=== PATIENT | female | born 1960 | race Caucasian/White ===

== ENCOUNTER → 2016-06-27 | Outpatient (CLI) | payer BC ==
[2016-06-27 08:46] LABS: ALT 18 U/L (9-52); AST 21 U/L (14-36); Alkaline Phosphatase 74 U/L (38-126); Anion Gap 13 mmol/L; Blood Urea Nitrogen 16 mg/dL (7-17); CHCM 33.3; Calcium 9.4 mg/dL (8.4-10.2); Carbon Dioxide 24 mmol/L (22-30); Chloride 104 mmol/L (98-107); Cholesterol 200 mg/dL (<200); Glucose 107 mg/dL (74-99); HCT 43.6 % (34.0-46.0); HDL Cholesterol 45 mg/dL (40-60); HGB 14.3 gm/dL (11.4-16.0); MCH 28.7 pg (25.0-35.0); MCHC 32.8 g/dL (31.0-37.0); MCV 87.4 fL (80.0-100.0); Mean Platelet Volume 6.8; Non-African American GFR(MDRD) >60 (>60 ml/min/1.73 sqM); Potassium 4.3 mmol/L (3.5-5.1); RBC 4.98 m/uL (3.80-5.40); RDW 13.5 % (11.5-15.5); Sodium 141 mmol/L (137-145); Total Bilirubin 0.8 mg/dL (0.2-1.3); Total Protein 7.7 g/dL (6.3-8.2); Triglycerides 247 mg/dL (<150); WBC 7.2 k/uL (3.8-10.6)
== END | disposition home or self-care (01) ==
LOC: LABWHC1 08:14
PROVIDERS: ATTEND Internal Medicine
DX: E78.5 Hyperlipidemia, unspecified (principal); I10 Essential (primary) hypertension; R53.83 Other fatigue
CPT/HCPCS: 36415; 80053; 80061; 84443; 85027

== ENCOUNTER → 2019-03-30 | Outpatient (CLI) | payer BC ==
[2019-03-30 08:25] LABS: HCT 41.8 % (34.0-46.0); HGB 13.7 gm/dL (11.4-16.0); MCH 27.5 pg (25.0-35.0); MCHC 32.7 g/dL (31.0-37.0); MCV 84.2 fL (80.0-100.0); Mean Platelet Volume 7.3; Platelet Count 260 k/uL (150-450); RBC 4.97 m/uL (3.80-5.40); RDW 13.4 % (11.5-15.5); WBC 6.4 k/uL (3.8-10.6)
[2019-03-30 12:05] LABS: African American GFR (CKD) 118.1 (60.0-200.0); Albumin 4.3 g/dL (3.80-4.90); Albumin/Globulin Ratio 2.05 (1.60-3.17); Anion Gap 6.1 mmol/L (4.00-12.00); Calcium 9.1 mg/dL (8.7-10.3); Carbon Dioxide 28.9 mmol/L (21.6-31.8); Chol/HDL Ratio 4.76; Globulin 2.1 g/dL (1.6-3.3); Non-African American GFR(CKD) 101.9 (60.0-200.0); Potassium 4.2 mmol/L (3.5-5.5); Total Bilirubin 0.6 mg/dL (0.2-1.2); Total Protein 6.4 g/dL (6.2-8.2)
== END | disposition home or self-care (01) ==
LOC: LABWHC1 07:56
PROVIDERS: ATTEND Internal Medicine
DX: I10 Essential (primary) hypertension (principal); E78.5 Hyperlipidemia, unspecified
CPT/HCPCS: 36415; 80053; 80061; 83721; 85027

== ENCOUNTER → 2023-02-12 | Outpatient (CLI) | payer BC ==
--- NOTE | 2023-02-12 16:14 | MM ---
Reason for Exam: Screening (asymptomatic). Last mammogram was performed 11 year(s) and 0 month(s) ago. Patient History: Menarche at age 13. First Full-Term at age 28. Right ovary removed at age 39. Hysterectomy at age 39. Postmenopausal. Maternal aunt had breast cancer, age 60. Maternal aunt had breast cancer, age 55. Risk Values: Jane 5 year model risk: 1.8%. NCI Lifetime model risk: 8.9%. Prior Study Comparison: 01/13/2009 Bilateral Screening Mammogram, [facility]. 01/20/2010 Bilateral Screening Mammogram, [facility]. 02/07/2011 Bilateral Screening Mammogram, [facility]. 02/15/2012 Bilateral Screening Mammogram, [facility]. 02/20/2012 Left Diagnostic Mammogram, [facility]. Tissue Density: The breast tissue is heterogeneously dense. This may lower the sensitivity of mammography. Findings: Analyzed By CAD. Pattern appears symmetrical. There are benign-appearing linear arranged calcifications lower outer right middle breast. Additional benign-appearing calcifications are present bilaterally. No suspicious groups of microcalcifications, spiculated or lobular masses, architectural distortion or other secondary signs of malignancy are mammographically apparent. Overall Assessment: Benign, BI-RAD 2 Management: Screening Mammogram of both breasts in 1 year. A negative mammogram report should not preclude additional follow up of suspicious palpable abnormalities. Patient should continue monthly self breast exam. A clinical breast exam by your physician is recommended on an annual basis and results should be correlated with mammographic findings. Electronically signed and approved by: Nolan Cordoba D.O. Radiologis
--- NOTE | 2023-02-12 16:32 | BD ---
EXAMINATION TYPE: Axial Bone Density DATE OF EXAM: 02/12/2023 CLINICAL HISTORY: 62 years old Female. ICD-10 CODE: Z78.0 Z13.820 ENCOUNTER FOR SCREENING IN [facility] Height: 61.5 in Weight: 139 lbs FRAX RISK QUESTIONS: Secondary Osteoporosis: 3. Menopause before 45: partial hysterectomy age 39 RISK FACTORS HISTORY OF: Active: yes Diet low in dairy products/other sources of calcium: yes Postmenopausal woman: partial hysterectomy age 39 MEDICATIONS: Additional Medications: vit d EXAM MEASUREMENTS: Bone mineral densitometry was performed using the Arden Reed System. Bone mineral density as measured about the Lumbar spine is: ----- L1-L4(G/cm2): 1.285 T Score Values are as follows: ----- L1: 0.2 ----- L2: 0.5 ----- L3: 1.2 ----- L4: 1.4 ----- L1-L4: 0.9 Z Score Values are as follows: ----- L1: 1.5 ----- L2: 1.8 ----- L3: 2.5 ----- L4: 2.7 ----- L1-L4: 2.2 Bone mineral density baseline Bone mineral density about the R hip (g/cm2): 0.806 Bone mineral density about the L hip (g/cm2): 0.869 T Score values are as follows: -----R Neck: -1.6 -----L Neck: -1.9 -----R Total: -1.6 -----L Total: -1.1 Z Score values are as follows: -----R Neck: -0.5 -----L Neck: -0.6 -----R Total: -0.6 -----L Total: -0.1 Bone mineral density baseline FRAX%s: The graph provided illustrates a 9.5% chance for a major osteoporotic fx and a 1.2% chance fo r the hips probability for fx in 10 years time. IMPRESSION: Osteopenia (T Score between -2.5 and -1). There is slightly increased risk of fracture and the patient may be considered for treatment. Re-Screen 2-5 years. NOTE: T-SCORE=SD OF THE YOUNG ADULT MEAN.
== END | disposition home or self-care (01) ==
LOC: RADMAMWWP 07:34
PROVIDERS: ATTEND Internal Medicine
DX: Z12.31 Encounter for screening mammogram for malignant neoplasm of breast (principal); Z13.820 Encounter for screening for osteoporosis; M85.89 Other specified disorders of bone density and structure, multiple sites; Z80.3 Family history of malignant neoplasm of breast; Z78.0 Asymptomatic menopausal state
CPT/HCPCS: 77063; 77067; 77080

== ENCOUNTER 2024-02-22 14:41 | Emergency (ER) | payer BC ==
--- NOTE | 2024-02-22 16:13 | ED ---
Skin/Abscess/FB HPI - General Chief complaint: Skin/Abscess/Foreign Body Stated complaint: Facial swelling/sore Time Seen by Provider: 02/22/24 14:57 Source: patient, RN notes reviewed Mode of arrival: ambulatory Limitations: no limitations - History of Present Illness Initial comments: Patient is a 63-year-old female presenting with abscess/growth under right jaw x 3 days. Patient states she is unsure of cause, with it starting as a small bump 2 weeks ago, stating she has already received antibiotics (Augmentin and doxycycline) for the suspected infection with minimal relief. Endorses small amount of purulent discharge. States she was referred to ER for possible I&D. Endorses associated sore throat and fatigue. Denies known fever, chills, ear pain. MD complaint: abscess/boil Onset/Timin -: days(s) Location: neck Consistency: constant Improves with: none Worsens with: none Context: none Treatments Prior to Arrival: antibiotic - Related Data Previous Rx's Medication Instructions Recorded Mupirocin 2% Oint [Bactroban 2% 1 applic TOPICAL TID #22 gm 02/22/24 Oint] clindamycin HCL 300 mg PO QID #40 cap 02/22/24 Allergies Allergy/AdvReac Type Severity Reaction Status Date / Time latex Allergy Unknown Verified 02/22/24 15:19 Review of Systems ROS Statement: Those systems with pertinent positive or pertinent negative responses have been documented in the HPI. ROS Other: All systems not noted in ROS Statement are negative. Past Medical History Past Surgical History: Adenoidectomy, Ear Surgery, Hysterectomy, Tonsillectomy Smoking Status: Never smoker Past Alcohol Use History: Occasional Past Drug Use History: None Reported General Exam Limitations: no limitations General appearance: alert, in no apparent distress Head exam: Present: atraumatic, normocephalic, other (Positive bilateral mild parotitis with tenderness) Eye exam: Present: normal appearance, PERRL, EOMI. Absent: scleral icterus, conjunctival injection, periorbital swelling ENT exam: Present: normal exam, mucous membranes moist Neck exam: Present: normal inspection, lymphadenopathy (Diffuse submandibular lymphadenopathy), other (Golf ball sized, erythematous abscess/cyst/lymph node in right submandibular/submental region with associated tenderness and small amount of purulent discharge with attempted expression). Absent: tenderness, meningismus Respiratory exam: Present: normal lung sounds bilaterally. Absent: respiratory distress, wheezes, rales, rhonchi, stridor Cardiovascular Exam: Present: regular rate, normal rhythm, normal heart sounds. Absent: systolic murmur, diastolic murmur, rubs, gallop, clicks GI/Abdominal exam: Present: soft, normal bowel sounds. Absent: distended, tenderness, guarding, rebound, rigid Extremities exam: Present: normal inspection, full ROM, normal capillary refill. Absent: tenderness, pedal edema, joint swelling, calf tenderness Back exam: Present: normal inspection Neurological exam: Present: alert, oriented X3, CN II-XII intact Psychiatric exam: Present: normal affect, normal mood Skin exam: Present: warm, dry, intact, normal color. Absent: rash Course Vital Signs 02/22/24 02/22/24 15:19 18:56 Temperature 98 F 98.2 F Pulse Rate 91 63 Respiratory 20 18 Rate Blood Pressure 124/66 109/73 O2 Sat by Pulse 97 100 Oximetry Procedures - Incision & Drainage Consent Obtained: verbal consent Indication: Abscess Site: neck Size (cm): 2 (2 cm horizontal incision) Anesthetic Used: lidocaine 1% Amount (mLs): 4 I&D Cleaning Method: Betadine Sterile Field Used?: No Scalpel Used: #11 Ultrasound used: Yes Needle Aspiration Performed?: No Irrigation Performed?: Yes I&D Drainage Obtained: Pus, Blood Loculation Noted: probing needed to break Insertion of drain: No Culture Obtained?: Yes Patient Tolerated Procedure: well Medical Decision Making - Medical Decision Making Was pt. sent in by a medical professional or institution (, PA, CRANE ASSEMBLER, urgent care, hospital, or snf...) When possible be specific @ -[No] Did you speak to anyone other than the patient for history (EMS, parent, family, police, friend...)? What history was obtained from this source @ -[No] Did you review nursing and triage notes (agree or disagree)? Why? @ -[I reviewed and agree with nursing and triage notes] Were old charts reviewed (outside hosp., previous admission, EMS record, old EKG, old radiological studies, urgent care reports/EKG's, snf records)? Report findings @ -[No old charts were reviewed] Differential Diagnosis (chest pain, altered mental status, abdominal pain women, abdominal pain men, vaginal bleeding, weakness, fever, dyspnea, syncope, hea dache, dizziness, GI bleed, back pain, seizure, CVA, palpatations, mental health, musculoskeletal)? @ -Abscess, lymphadenitis, strep pharyngitis, parotitis, Aureliano's angina, cellulitis, sinusitis, AOM, this is not an exhaustive list EKG interpreted by me (3pts min.). @ -Not done X-rays interpreted by me (1pt min.). @ -[None done] CT interpreted by me (1pt min.). @ -[None done] U/S interpreted by me (1pt. min.). @ -[None done] What testing was considered but not performed or refused? (CT, X-rays, U/S, labs)? Why? @ -[None] What meds were considered but not given or refused? Why? @ -[None] Did you discuss the management of the patient with other professionals (professionals i.e. , PA, CRANE ASSEMBLER, lab, RT, psych nurse, social work associate, certified professional controller, teacher, community service officer coordinator, director case)? Give summary @ -[No] Was smoking cessation discussed for >3mins.? @ -[No] Was critical care preformed (if so, how long)? @ -[No] Were there social determinants of health that impacted care today? How? (Homelessness, low income, unemployed, alcoholism, drug addiction, transportation, low edu. Level, literacy, decrease access to med. care, alf, rehab)? @ -[No] Was there de-escalation of care discussed even if they declined (Discuss DNR or withdrawal of care, Hospice)? DNR status @ -[No] What co-morbidities impacted this encounter? (DM, HTN, Smoking, COPD, CAD, Cancer, CVA, ARF, Chemo, Hep., AIDS, mental health diagnosis, sleep apnea, morbid obesity)? @ -[None] Was patient admitted / discharged? Hospital course, mention meds given and route, prescriptions, significant lab abnormalities, going to OR and other pertinent info. @ -[hospital course] Undiagnosed new problem with uncertain prognosis? @ -[No] Drug Therapy requiring intensive monitoring for toxicity (Heparin, Nitro, Insulin, Cardizem)? @ -[No] Were any procedures done? @ -I&D of abscess performed Diagnosis/symptom? @ -Parotitis, submandibular abscess Acute, or Chronic, or Acute on Chronic? @ -Acute Uncomplicated (without systemic symptoms) or Complicated (systemic symptoms)? @ -Complicated Side effects of treatment? @ -[No] Exacerbation, Progression, or Severe Exacerbation? @ -[No] Poses a threat to life or bodily function? How? (Chest pain, USA, NV, pneumonia, PE, COPD, DKA, ARF, appy, cholecystitis, CVA, Diverticulitis, Homicidal, Suicidal, threat to staff... and all critical care pts) @ -[No] - Lab Data Result diagrams: 02/22/24 16:19 02/22/24 16:19 Lab Results 02/22/24 02/22/24 02/22/24 Range/Units 16:19 16:19 16:32 WBC 12.0 H (3.8-10.6) k/uL RBC 5.16 (3.80-5.40) m/uL Hgb 14.2 (11.4-16.0) gm/dL Hct 43.5 (34.0-46.0) % MCV 84.3 (80.0-100.0) fL MCH 27.4 (25.0-35.0) pg MCHC 32.5 (31.0-37.0) g/dL RDW 12.8 (11.5-15.5) % Plt Count 323 (150-450) k/uL MPV 7.8 Neutrophils % 76 % Lymphocytes % 16 % Monocytes % 4 % Eosinophils % 2 % Basophils % 0 % Neutrophils # 9.1 H (1.3-7.7) k/uL Lymphocytes # 2.0 (1.0-4.8) k/uL Monocytes # 0.5 (0-1.0) k/uL Eosinophils # 0.2 (0-0.7) k/uL Basophils # 0.0 (0-0.2) k/uL Sodium 138 (137-145) mmol/L Potassium 4.2 (3.5-5.1) mmol/L Chloride 100 (98-107) mmol/L Carbon Dioxide 23 (22-30) mmol/L Anion Gap 15 mmol/L BUN 25 H (7-17) mg/dL Creatinine 0.75 (0.52-1.04) mg/dL Est GFR (CKD-EPI)AfAm >90 (>60 ml/min/1.73 sqM) Est GFR (CKD-EPI)NonAf 86 (>60 ml/min/1.73 sqM) Glucose 169 H (74-99) mg/dL Calcium 10.3 H (8.4-10.2) mg/dL Total Bilirubin 0.2 (0.2-1.3) mg/dL AST 22 (14-36) U/L ALT 17 (4-34) U/L Alkaline Phosphatase 73 (38-126) U/L Total Protein 7.6 (6.3-8.2) g/dL Albumin 4.7 (3.5-5.0) g/dL Influenza Type A (PCR) (Not Detectd) Influenza Type B (PCR) (Not Detectd) RSV (PCR) (Not Detectd) SARS-CoV-2 (PCR) (Not Detectd) Group A Strep (PCR) NOT DETECTED (Not Detectd) 02/22/24 Range/Units 16:32 WBC (3.8-10.6) k/uL RBC (3.80-5.40) m/uL Hgb (11.4-16.0) gm/dL Hct (34.0-46.0) % MCV (80.0-100.0) fL MCH (25.0-35.0) pg MCHC (31.0-37.0) g/dL RDW (11.5-15.5) % Plt Count (150-450) k/uL MPV Neutrophils % % Lymphocytes % % Monocytes % % Eosinophils % % Basophils % % Neutrophils # (1.3-7.7) k/uL Lymphocytes # (1.0-4.8) k/uL Monocytes # (0-1.0) k/uL Eosinophils # (0-0.7) k/uL Basophils # (0-0.2) k/uL Sodium (137-145) mmol/L Potassium (3.5-5.1) mmol/L Chloride (98-107) mmol/L Carbon Dioxide (22-30) mmol/L Anion Gap mmol/L BUN (7-17) mg/dL Creatinine (0.52-1.04) mg/dL Est GFR (CKD-EPI)AfAm (>60 ml/min/1.73 sqM) Est GFR (CKD-EPI)NonAf (>60 ml/min/1.73 sqM) Glucose (74-99) mg/dL Calcium (8.4-10.2) mg/dL Total Bilirubin (0.2-1.3) mg/dL AST (14-36) U/L ALT (4-34) U/L Alkaline Phosphatase (38-126) U/L Total Protein (6.3-8.2) g/dL Albumin (3.5-5.0) g/dL Influenza Type A (PCR) Not Detected (Not Detectd) Influenza Type B (PCR) Not Detected (Not Detectd) RSV (PCR) Not Detected (Not Detectd) SARS-CoV-2 (PCR) Not Detected (Not Detectd) Group A Strep (PCR) (Not Detectd) Disposition Clinical Impression: Acute parotitis, Abscess, Lymphadenitis, acute Disposition: HOME SELF-CARE Condition: Good Instructions (If sedation given, give patient instructions): Abscess Incision and Drainage (ED) Additional Instructions: Increase hydration and use of sialagogues like lemon drops. Hold on doxycycline use and start clindamycin. Continue Augmentin use Prescriptions: Mupirocin 2% Oint [Bactroban 2% Oint] 1 applic TOPICAL TID #22 gm clindamycin HCL 300 mg PO QID #40 cap Is patient prescribed a controlled substance at d/c from ED?: No Referrals: Rc Amaya DO [Primary Care Provider] - 1-2 days Time of Disposition: 18:26
[2024-02-22 16:26] LABS: Basophils % (A) 0 %; Eosinophils # (A) 0.2 k/uL (0-0.7); Eosinophils % (A) 2 %; HCT 43.5 % (34.0-46.0); HGB 14.2 gm/dL (11.4-16.0); Lymphocytes % (A) 16 %; MCH 27.4 pg (25.0-35.0); MCHC 32.5 g/dL (31.0-37.0); MCV 84.3 fL (80.0-100.0); Mean Platelet Volume 7.8; Monocytes # (A) 0.5 k/uL (0-1.0); Monocytes % (A) 4 %; Neutrophils # (A) 9.1 k/uL (1.3-7.7); Neutrophils % (A) 76 %; Platelet Count 323 k/uL (150-450); RBC 5.16 m/uL (3.80-5.40); RDW 12.8 % (11.5-15.5)
[2024-02-22 16:36] LABS: ALT 17 U/L (4-34); AST 22 U/L (14-36); African American GFR (CKD) >90 (>60 ml/min/1.73 sqM); Albumin 4.7 g/dL (3.5-5.0); Alkaline Phosphatase 73 U/L (38-126); Anion Gap 15 mmol/L; Blood Urea Nitrogen 25 mg/dL (7-17); Calcium 10.3 mg/dL (8.4-10.2); Carbon Dioxide 23 mmol/L (22-30); Chloride 100 mmol/L (98-107); Glucose 169 mg/dL (74-99); Non-African American GFR(CKD) 86 (>60 ml/min/1.73 sqM); Potassium 4.2 mmol/L (3.5-5.1); Sodium 138 mmol/L (137-145); Total Bilirubin 0.2 mg/dL (0.2-1.3); Total Protein 7.6 g/dL (6.3-8.2)
--- NOTE | 2024-02-22 17:26 | US ---
EXAMINATION TYPE: US thyroid st tissue head/neck DATE OF EXAM: 02/22/2024 COMPARISON: NONE CLINICAL INDICATION: Female, 63 years old with history of Right submandibular abscess/lymphadenitis; Right submandibular swelling/lump/redness x 2 days. TECHNIQUE: Scanned right submandibular area at patient's area of concern. Grayscale and color Dopple r imaging utilized. FINDINGS: *Complex area with peripheral vascularity seen: 3.4 x 2.6 x 1.5 cm. No lymphadenopathy jennifer ntified. IMPRESSION: Complex fluid collection possibly representing abscess formation correlate clinically. [facility], , 02/22/2024 5:23 PM
[2024-02-22] MEDS: KETOROLAC 15 MG/ML 1 ML VIAL IVP STA (17:34)
[2024-02-22] MEDS: SODIUM CHLORIDE 0.9% 1,000 ML IV STA (17:34)
[2024-02-22] MEDS: LIDOCAINE 1% INJ 10MG/ML (20 ML MDV) SQ ONE (17:37)
[2024-02-22] MEDS: DIPH,PERTUS(ACELL)TETVAC-LF 0.5 ML VIAL IM ONE (18:39)
[2024-02-22 18:57] VITALS: BP 109/73; PULSE 63; RESP 18; TEMP 98.2
== END 2024-02-22 18:57 | disposition home or self-care (01) ==
LOC: EC 14:41
DX: K11.21 Acute sialoadenitis (principal); L04.9 Acute lymphadenitis, unspecified; Z91.040 Latex allergy status; Z23 Encounter for immunization
CPT/HCPCS: 36415; 86735; 87651; 80053; 85025; 87070; 87205; 87077; 87186; 87636; 76536; 90715; 99284; 96374; 96372; 96361; 90471; 10060; J2003; J1885